=== PATIENT | male | born 1945 | race Caucasian/White ===

== ENCOUNTER 2016-12-27 23:25 | Emergency (ER) | payer MEDICARE, BC ==
[~2016-12-27] VITALS: Ht 182.9 cm; Wt 132.0 kg
[2016-12-27 23:42] VITALS: BP 179/98; PULSE 93; RESP 18; TEMP 98.6; O2SAT 97
[2016-12-28] MEDS ORDERED: ZOLP5TAB3 PO (00:33)
[2016-12-28] MEDS ORDERED: FURO40TA PO (00:33)
[2016-12-28] MEDS ORDERED: METF500T PO (00:33)
[2016-12-28] MEDS ORDERED: LEVO137T2 PO (00:33)
[2016-12-28] MEDS ORDERED: ALLO300T2 PO (00:33)
[2016-12-28] MEDS ORDERED: GLYB5TAB3 PO (00:33)
[2016-12-28] MEDS ORDERED: HYDR-3583 PO (00:33)
[2016-12-28] MEDS ORDERED: SODIUM CHLORIDE 0.9% FLUSH 10 ML FLUSH IVF PRN (01:00)
--- NOTE | 2016-12-28 01:01 | PD ---
HPI Chief Complaint: Respiratory Symptoms Time Seen by Provider: 00:49 Travel History International Travel<30 days: No Contact w/Intl Traveler<30days: No Traveled to known affect area: No History of Present Illness HPI 71-year-old male presents to the emergency department for complaint of one month of progressively worsening shortness of breath. Patient has history of hypertension diabetes CHF and atrial fibrillation. Patient states he takes no blood thinning agents. Patient has no local physician is visiting here from [place]. Patient states he states here proxy 6 months out of the year. Patient is visiting family. Patient is not contacted a physician over the past month while he's had progressive worsening symptoms. Patient denies fever or chills. Patient's had no chest pain or pleuritic chest pain. Patient has noted some swelling of the lower extremities and thinks his cane approximately 30 pounds in the past month. Patient has traveled also to the [facility] and started noticing his symptoms in November while there. PFSH Past Medical History Narrative Medical Atrial fibrillation hypertension dyslipidemia diabetes CHF hypothyroidism; alcohol use, no tobacco use; nursing notes reviewed Atrial Fibrillation: Yes Heart Rhythm Problems: Yes High Cholesterol: Yes Congestive Heart Failure: Yes Diabetes: Yes Patient Takes Glucophage: Yes (11/30/16) Diminished Hearing: No Gout: Yes Hypertension: Yes Inguinal Hernia: Yes Thyroid Disease: Yes Tetanus Vaccination: Unknown Influenza Vaccination: No Social History Alcohol Use: Yes (2 DRINKS A NIGHT) Tobacco Use: No Substance Use: No Allergies-Medications (Allergen,Severity, Reaction): Coded Allergies: Bee Sting (Verified Allergy, Unknown, Anaphylaxis, 12/28/16) Reported Meds & Prescriptions Reported Meds & Active Scripts Active Reported Zolpidem (Zolpidem Tartrate) 5 Mg Tab 5 Mg PO HS PRN Hydrocodone-Acetaminophen 10-325 mg Tab 1 Tab PO Q6H PRN Furosemide 40 Mg Tab 40 Mg PO DAILY Allopurinol 300 Mg Tab 300 Mg PO DAILY Levothyroxine (Levothyroxine Sodium) 137 Mcg Tab 125 Mcg PO DAILY Metformin (Metformin HCl) 500 Mg Tab 500 Mg PO DAILY With a meal Glyburide 5 Mg Tab 5 Mg PO DAILY Take with meals at the same time each day Narrative Medication Losartan 50 mg daily Review of Systems Except as stated in HPI: all other systems reviewed are Neg General / Constitutional: No: Fever, Chills HENT: No: Congestion Cardiovascular: Positive: Dyspnea on exertion, Edema, No: Chest Pain or Discomfort Respiratory: Positive: Shortness of Breath, No: Cough, Wheezing Gastrointestinal: No: Nausea, Vomiting, Diarrhea Genitourinary: No: Dysuria, Flank Pain Musculoskeletal: Positive: Edema, No: Myalgias, Arthralgias Skin: No Rash Neurologic: No: Weakness Psychiatric: No: Anxiety Hematologic/Lymphatic: No: Lymph Node Enlargement Physical Exam Narrative GENERAL: Well-developed well-nourished male in no acute distress no respiratory distress SKIN: Warm and dry. HEAD: Normocephalic. EYES: No scleral icterus. No injection or drainage. NECK: Supple, trachea midline. No JVD or lymphadenopathy. CARDIOVASCULAR: Regular rate and rhythm without murmurs, gallops, or rubs. RESPIRATORY: Breath sounds equal bilaterally except mildly diminished right lung base to posterior auscultation. No accessory muscle use. GASTROINTESTINAL: Abdomen soft, non-tender, nondistended. MUSCULOSKELETAL: No cyanosis, trace to 1+ bilateral lower leg and pedal edema. BACK: Nontender without obvious deformity. No CVA tenderness. Data Data Last Documented VS Vital Signs Date Time Temp Pulse Resp B/P Pulse Ox O2 Delivery O2 Flow Rate FiO2 12/28/16 01:28 72 20 186/86 99 12/28/16 01:06 Nasal Cannula 2 12/27/16 23:42 98.6 Orders Complete Blood Count With Diff (12/28/16 00:49) Comprehensive Metabolic Panel (12/28/16 00:49) B-Type Natriuretic Peptide (12/28/16 00:49) Act Partial Throm Time (Ptt) (12/28/16 00:49) Prothrombin Time / Inr (Pt) (12/28/16 00:49) Magnesium (Mg) (12/28/16 00:49) Ckmb (Isoenzyme) Profile (12/28/16 00:49) Troponin I (12/28/16 00:49) Urinalysis - C+S If Indicated (12/28/16 00:49) Iv Access Insert/Monitor (12/28/16 00:49) Electrocardiogram (12/28/16 00:49) Ecg Monitoring (12/28/16 00:49) Oximetry (12/28/16 00:49) Oxygen Administration (12/28/16 00:49) Chest, Single Ap (12/28/16 00:49) Sodium Chloride 0.9% Flush (Ns Flush) (12/28/16 01:00) Furosemide Inj (Lasix Inj) (12/28/16 01:45) Ct Pulmonary Angiogram (12/28/16 ) Iohexol 350 Inj (Omnipaque 350 Inj) (12/28/16 04:19) Labs Laboratory Tests Test 12/28/16 00:30 White Blood Count 5.9 TH/MM3 Red Blood Count 4.29 MIL/MM3 Hemoglobin 12.4 GM/DL Hematocrit 38.0 % Mean Corpuscular Volume 88.7 FL Mean Corpuscular Hemoglobin 29.0 PG Mean Corpuscular Hemoglobin 32.7 % Concent Red Cell Distribution Width 15.4 % Platelet Count 156 TH/MM3 Mean Platelet Volume 7.7 FL Neutrophils (%) (Auto) 73.9 % Lymphocytes (%) (Auto) 13.5 % Monocytes (%) (Auto) 10.1 % Eosinophils (%) (Auto) 1.9 % Basophils (%) (Auto) 0.6 % Neutrophils # (Auto) 4.4 TH/MM3 Lymphocytes # (Auto) 0.8 TH/MM3 Monocytes # (Auto) 0.6 TH/MM3 Eosinophils # (Auto) 0.1 TH/MM3 Basophils # (Auto) 0.0 TH/MM3 CBC Comment DIFF FINAL Differential Comment Prothrombin Time 11.8 SEC Prothromb Time International 1.1 RATIO Ratio Activated Partial 28.4 SEC Thromboplast Time Urine Color YELLOW Urine Turbidity CLEAR Urine pH 7.0 Urine Specific [place] 1.005 Urine Protein 100 mg/dL Urine Glucose (UA) NEG mg/dL Urine Ketones NEG mg/dL Urine Occult Blood TRACE Urine Nitrite NEG Urine Bilirubin NEG Urine Leukocyte Esterase NEG Urine RBC 0-3 /hpf Urine WBC 0-2 /hpf Urine Squamous Epithelial 0-5 /hpf Cells Urine Bacteria NONE /hpf Microscopic Urinalysis Comment CULT NOT INDICATED Sodium Level 131 MEQ/L Potassium Level 4.0 MEQ/L Chloride Level 92 MEQ/L Carbon Dioxide Level 29.7 MEQ/L Anion Gap 9 MEQ/L Blood Urea Nitrogen 14 MG/DL Creatinine 1.00 MG/DL Estimat Glomerular Filtration 74 ML/MIN Rate Random Glucose 165 MG/DL Calcium Level 9.1 MG/DL Magnesium Level 1.8 MG/DL Total Bilirubin 1.3 MG/DL Aspartate Amino Transf 23 U/L (AST/SGOT) Alanine Aminotransferase 16 U/L (ALT/SGPT) Alkaline Phosphatase 199 U/L Total Creatine Kinase 70 U/L Troponin I 0.02 NG/ML B-Type Natriuretic Peptide 292 PG/ML Total Protein 7.0 GM/DL Albumin 3.5 GM/DL MDM Medical Decision Making Medical Screen Exam Complete: Yes Emergency Medical Condition: Yes Medical Record Reviewed: Yes Interpretation(s) EKG: Atrial fibrillation rate 92 QS septally age-indeterminate no acute ST elevation or injury pattern change noted Last Impressions Chest X-Ray 12/28/16 0049 Signed Impressions: Service Date/Time: Wednesday, December 28, 2016 01:05 - CONCLUSION: Some increased density overlying the right lower lobe could be right lower lobe atelectasis. Donta Vidal MD CT Angiography 12/28/16 0000 Signed Impressions: Service Date/Time: Wednesday, December 28, 2016 03:48 - CONCLUSION: Normal examination without evidence of pulmonary embolism. Bilateral pleural effusions right greater than left. No definite infiltrate or mass.. Donta Vidal MD CBC & BMP Diagram 12/28/16 00:30 CK 70: Not elevated; troponin I 0.02, not elevated Coagulation studies normal range Urinalysis normal Differential Diagnosis Dyspnea, uncontrolled atrial fibrillation, CHF, PE, pneumonia, unstable angina/ ACS, SD, electrolyte disturbance Narrative Course IV access obtained specimens collected and sent for resulting patient placed on child monitor EKG performed which shows atrial fibrillation with controlled ventricular rate in no acute ST elevation or injury pattern change patient has QS patterns septally age-indeterminate V1 V2; no comparison EKG Patient administered Lasix 40 mg IV BNP 292 mildly elevated Chest x-ray shows right lower lobe density possible infiltrate Patient has diuresed over 1500 cc of urine reports feels clinically improved Patient rating on remaining values now complains of pleuritic type pain to the right lower lung; with recent travel or obtain CT bony angiogram CT resulted and identified to have bilateral pleural effusions right greater than left no lobar infiltrate. No infiltrate or mass. It is now 5:20 AM patient is a laboratory but the emergency department and not complaining of shortness of breath or dyspnea on exertion has had no orthopnea or PND. Room air O2 saturation 96-97%. Patient is identified to have bilateral pleural effusions and is encouraged to follow-up with local MJoseD. for reassessment. At this time patient does not require urgent/emergent pleurocentesis.Blood pressures well controlled and patient is encouraged to continue his current medications as chronically prescribed. Patient is aware he cannot take his metformin for 48 hours after IV contrast administration therefore should not take any metformin until after Saturday at 8 AM. Patient is also aware that he should return to the emergency department for any recurrent symptoms or recurrent shortness of breath. Diagnosis Primary Impression: Dyspnea Qualified Code: R06.09 - Dyspnea on exertion Additional Impressions: Pleural effusion, bilateral H/O CHF Referrals: [facility] call for appointment Primary Care Physician 3 days Patient Instructions: General Instructions Additional Instructions: Continue chronic medications as chronically prescribed except for metformin do not take this medication until after Saturday12/30/16 at 8 AM due to receiving IV contrast Saturday at 5:30 AM. Return to the emergency department for any concerns or change in condition Monitor temperature take acetaminophen as needed for fever 100.4F or greater Follow-up with primary care provider call office on Saturday or follow-up [facility] on Saturday Med/Other Pt SpecificInfo: No Change to Meds Disposition: 01 DISCHARGE HOME Condition: Stable Georgie Wilkes MD December 28, 2016 01:01
[2016-12-28 01:06] VITALS: BP 189/86; PULSE 70; RESP 20; O2SAT 98
[2016-12-28 01:10] LABS: BLOOD, URINE TRACE (NEG); GLUCOSE,URINE NEG (NEG); KETONE, URINE NEG (NEG); NITRITE,URINE NEG (NEG)
[2016-12-28 01:11] LABS: AUTOMATED NEUTROPHIL # 4.4 TH/MM3 (1.8-7.7); BASOPHIL % 0.6 % (0.0-2.0); EOSINOPHIL # 0.1 TH/MM3 (0-0.4); EOSINOPHIL % 1.9 % (0.0-4.0); HEMO FLAGS DIFF FINAL; LYMPH % 13.5 % (9.0-44.0); LYMPHOCYTE # 0.8 TH/MM3 (1.0-4.8); MEAN CELL VOLUME 88.7 FL (80.0-100.0); MEAN CORPUSCULAR HGB CONC 32.7 % (32.0-36.0); MONO % 10.1 % (0.0-8.0); NEUT % 73.9 % (16.0-70.0); PLATELET COUNT 156 TH/MM3 (150-450); RED BLOOD COUNT 4.29 MIL/MM3 (4.50-5.90); RED CELL DISTRIBUTION WIDTH 15.4 % (11.6-17.2); WHITE BLOOD COUNT 5.9 TH/MM3 (4.0-11.0)
--- NOTE | 2016-12-28 01:16 | RADHPO ---
EXAM DATE/TIME: 12/28/2016 01:05 [facility] COMPARISON: No previous studies available for comparison. INDICATIONS : Shortness of breath starting tonight MEDICAL HISTORY : None. SURGICAL HISTORY : None. ENCOUNTER: Initial ACUITY: 1 day PAIN SCORE: 0/10 LOCATION: Bilateral chest FINDINGS: A single view of the chest demonstrates faint density in the right lower lobe atelectasis versus pleu ral effusion. The cardiomediastinal contours are unremarkable. Osseous structures are intact. CONCLUSION: Some increased density overlying the right lower lobe could be right lower lobe atelectasis. Donta Vidal MD on December 28, 2016 at 1:14 Board Certified Radiologist. This report was verified electronically.
[2016-12-28 01:21] LABS: URINE COLOR YELLOW (YELLW/STRAW); WBC, URINE 0-2 /hpf (0-5)
[2016-12-28 01:22] LABS: COMMENT (UR) CULT NOT INDICATED; CULTURE IF INDICATED CULT NOT INDICATED; RBC, URINE 0-3 /hpf (0-3); SQUAMOUS EPITHELIAL CELL URINE 0-5 /hpf (0-5)
[2016-12-28 01:23] LABS: CHLORIDE 92 MEQ/L (98-107); SODIUM (NA) 131 MEQ/L (136-145)
[2016-12-28 01:26] LABS: ANION GAP 9 MEQ/L (5-15); APTT (PATIENT) 28.4 SEC (24.3-30.1); BICARBONATE 29.7 MEQ/L (21.0-32.0); BLOOD UREA NITROGEN 14 MG/DL (7-18); INTERNATIONAL NORMALIZED RATIO 1.1 RATIO; MAGNESIUM 1.8 MG/DL (1.5-2.5); PROTHROMBIN TIME - PATIENT 11.8 SEC (9.8-11.6)
[2016-12-28 01:28] VITALS: BP 186/86; PULSE 72; RESP 20; O2SAT 99
[2016-12-28 01:29] LABS: ALT (GPT) 16 U/L (12-78); AST (GOT) 23 U/L (15-37)
[2016-12-28 01:30] LABS: GLOMERULAR FILTRATION RATE 74 ML/MIN (>89)
[2016-12-28 01:31] LABS: TOTAL BILIRUBIN ADULT 1.3 MG/DL (0.2-1.0)
[2016-12-28 01:32] LABS: ALKALINE PHOSPHATASE 199 U/L (45-117)
[2016-12-28] MEDS ORDERED: FUROSEMIDE 40 MG/4 ML VIAL IV PUSH ONE (01:45)
[2016-12-28 01:59] LABS: CREATINE KINASE 70 U/L (39-308)
[2016-12-28 03:28] VITALS: BP 163/78; PULSE 70; RESP 20; O2SAT 95
[2016-12-28] MEDS ORDERED: IOHEXOL 350 MG/ML 10 ML VIAL (for RAD DIAG) IV ONE (04:19)
--- NOTE | 2016-12-28 04:44 | RADHPO ---
EXAM DATE/TIME: 12/28/2016 03:48 [facility] COMPARISON: No previous studies available for comparison. INDICATIONS : Shortness of breath. Evaluate for embolism. IV CONTRAST: 75 cc Omnipaque 350 (iohexol) IV RADIATION DOSE: 21.47 CTDIvol (mGy) MEDICAL HISTORY : Hypertension. Diabetes mellitus type 2. Hernia, inguinal. SURGICAL HISTORY : None. ENCOUNTER: Initial ACUITY: 4 - 6 days PAIN SCALE: 3/10 LOCATION: Bilateral chest TECHNIQUE: Volumetric scanning of the chest was performed using a pulmonary embolism protocol MIP images were re constructed. Using automated exposure control and adjustment of the mA and/or kV according to patien t size, radiation dose was kept as low as reasonably achievable to obtain optimal diagnostic quality images. FINDINGS: PULMONARY ARTERIES: No filling defects are seen in the pulmonary arteries through the segmental level. LUNGS: There is no consolidation or pneumothorax . No concerning pulmonary nodule is visualized. PLEURAE: There is no pleural thickening. Large bilateral pleural effusions, right greater than left. MEDIASTINUM: There is good visualization of the great vessels of the middle mediastinum. No evidence of mediastin al or hilar adenopathy/mass. MUSCULOSKELETAL: Within normal limits for patient age. MISCELLANEOUS: The visualized upper abdominal organs demonstrate no acute abnormality. CONCLUSION: Normal examination without evidence of pulmonary embolism. Bilateral pleural effusions right greater than left. No definite infiltrate or mass.. Donta Vidal MD on December 28, 2016 at 4:42 Board Certified Radiologist. This report was verified electronically.
[2016-12-28 05:45] VITALS: BP 175/87
--- NOTE | 2016-12-29 16:18 | EKG ---
Date Performed: 12/28/2016 Time Performed: 00:06:46 PTAGE: 71 years EKG: AXIS RIGHTWARD TO ATRIAL FIBRILLATION WITH CONTROL VENTRICULAR RESPONSE. POOR INITIAL ANTER IOR FORCES V1/V2, THIS MAYBE NORMAL VARIANT. MINOR NONSPECIFIC T-WAVE CHANGES. NO PREVIOUS TRACING . Abnormal ECG NO PREVIOUS TRACING DOCTOR: Tyshawn Watt Interpretating Date/Time 12/29/2016 16:17:08
== END 2016-12-28 05:59 | disposition home or self-care (01) ==
LOC: PHED 23:25
DX: R06.09 Other forms of dyspnea (principal); J90 Pleural effusion, not elsewhere classified; I50.9 Heart failure, unspecified; I48.91 Unspecified atrial fibrillation; E78.00 Pure hypercholesterolemia, unspecified; E11.9 Type 2 diabetes mellitus without complications; M10.9 Gout, unspecified; I10 Essential (primary) hypertension; E07.9 Disorder of thyroid, unspecified
CPT/HCPCS: 71010; 71275; 80053; 81001; 82550; 83735; 83880; 84484; 85025; 85610; 85730; 93005; 96374; 99285; J1940; Q9967